=== PATIENT | female | born 1995 | race African-American/Black ===

== ENCOUNTER 2020-06-14 12:19 | Emergency (ER) | payer BC, OTHER ==
[~2020-06-14] VITALS: Ht 172.7 cm; Wt 85.5 kg
[~2020-06-14 12:19] MED LIST: CIPR500T94 PO; ONDA8TAB12 PO; TRAM50TA PO
[2020-06-14] MEDS ORDERED: HYDROcodone/APAP 5/325MG 1 TAB TABLET PO ONE (13:00)
[2020-06-14 13:54] VITALS: BP 118/76
[2020-06-14] MEDS ORDERED: LIDOCAINE 2%/EPI 1:100,000 20 ML VIAL. IJ ONE (14:00)
--- NOTE | 2020-06-14 14:41 | PHYS DOC ---
Past History Past Medical History: No Pertinent History Past Surgical History: Appendectomy Alcohol Use: Occasionally Drug Use: None Adult General Chief Complaint Chief Complaint: SKIN RASH/ABSCESS HPI HPI Patient is a 25-year-old female who presents emergency department complaining of a right vaginal Bartholin gland cyst for the past week. Patient states this is the fourth time she has had a Bartholin gland cyst on right side in the past few years. Patient reports her last Word catheter placement was 1-1/2 years ago. Patient states she has been getting these since before she had children and it is unlikely the reoccurrence is from vaginal trauma from . Patient states she has been checked for STIs in the past and does not have any sexually transmitted diseases, patient denies any STI concerns today. Patient reports her last menstrual cycle ended this past Thursday with normal duration of flow. Patient reports a 10/10 pain at the vaginal area stating that it seems to be about the size of a golf ball. Patient denies any vaginal discharge lesions or rashes in the vaginal area. Patient states she is allergic to Augmentin, takes no prescription medications at home. Patient reports a past surgical history of an appendectomy in 2016. Patient reports she had her last baby in October 05, 2019. Patient states she was at Dr. Thornton's office today and seen his nurse practitioner who diagnosed her with a sinus infection. Started her on cefdinir, Mucinex, and an allergy medication prescriptions which she is not filled yet today. Patient states Dr. Thornton's nurse practitioner sent her straight to the emergency department for evaluation of her Bartholin cyst. Patient denies any other physical complaints or physical concerns. Review of Systems Review of Systems 14 body systems of review of systems have been reviewed. See HPI for pertinent positives and negative responses, otherwise all other systems are negative, nonpertinent or noncontributory. Current Medications Current Medications Current Medications Medications (Trade) Dose Ordered Sig/Mylene Start Time Stop Time Status Last Admin Dose Admin Acetaminophen/ Hydrocodone Bitart (Lortab 5/325) 2 tab 1X ONCE 06/14/20 13:00 06/14/20 13:01 DC 06/14/20 13:25 2 TAB Lidocaine/ Epinephrine (Xylocaine 2%-Epi 1:100,000) 20 ml 1X ONCE 06/14/20 14:00 06/14/20 14:01 UNV Allergies Allergies Allergies Coded Allergies Type Severity Reaction Last Updated Verified amoxicillin Allergy Unknown 06/14/20 Yes clavulanic acid Allergy Unknown 06/14/20 Yes Physical Exam Physical Exam Constitutional: Well developed, well nourished, no acute distress, non-toxic appearance. HENT: Normocephalic, atraumatic, bilateral external ears normal, oropharynx [address], no oral exudates, nose normal. Eyes: PERRLA, EOMI, conjunctiva normal, no discharge. Neck: Normal range of motion, no tenderness, supple, no stridor. Cardiovascular:Heart rate regular rhythm, no murmur Lungs & Thorax: Bilateral breath sounds clear to auscultation Abdomen: Bowel sounds normal, soft, no tenderness, no masses, no pulsatile masses. Skin: Warm, dry, no erythema, no rash. Back: No tenderness, no CVA tenderness. Extremities: No tenderness, no cyanosis, no clubbing, ROM intact, no edema. Neurologic: Alert and oriented X 3, normal motor function, normal sensory function, no focal deficits noted. Psychologic: Affect normal, judgement normal, mood normal. : External vaginal exam performed with female RN assistance. No lesions or rashes or discharge appreciated during external exam. A speculum exam was not performed, a bimanual exam was not performed. A 3 cm in diameter abscess at the 8 o'clock position of the vaginal opening appreciated, no central punctum, no drainage appreciated. No erythema around the abscess appreciated, the abscess was fluctuant in nature. Pain was elicited with palpation of the abscess. Current Patient Data Vital Signs Vital Signs Date Time Temp Pulse Resp B/P (MAP) Pulse Ox O2 Delivery O2 Flow Rate FiO2 06/14/20 13:54 98.0 77 16 118/76 (90) 99 Room Air EKG EKG [] Radiology/Procedures Radiology/Procedures [] Heart Score C/O Chest Pain: No Risk Factors: Risk Factors: DM, Current or recent (<one month) smoker, HTN, HLP, family history of CAD, obesity. Risk Scores: Risk Factors: DM, Current or recent (<one month) smoker, HTN, HLP, family histo ry of CAD, obesity. Course & Med Decision Making Course & Med Decision Making Pertinent Labs and Imaging studies reviewed. (See chart for details) 25-year-old female, vital signs reviewed, presents emergency department con cerning of Bartholin gland cyst for the past week. Please see I&D note. Discussed with patient Word catheter placement, Word catheter care, must follow- up with primary care or [employer] specialist in 4 to 6 weeks for Word catheter removal. Patient is on cefdinir ordered by her primary care provider for sinus infection which she started today, will not order any additional antibiotics, low likelihood of infectious process as expressed material was translucent and mucoid in nature, nonmalodorous, no purulent material appreciated. Discussed with patient need to follow-up with [facility] specialist for reoccurring Bartholin cyst. Discussed with patient need to continue her medication regimen as ordered today by her primary care doctor. Patient gave verbal understanding of discharge home instructions, work catheter care, need to see primary care or [facility] specialist for reevaluation and removal within 4 to 6 weeks, patient gave verbal understanding of return to ER precautions or concerns, will continue taking her medication regimen as ordered by her primary care doctor, patient had no further questions or concerns, noted 100% pain relief now stating her pain is a 0/10 on a 1-10 pain scale, patient states she is ready to go home. Patient was discharged home without incident. Dragon Disclaimer Dragon Disclaimer This electronic medical record was generated, in whole or in part, using a voice recognition dictation system. Incision and Drainage Indication: [INDICATION:] Bartholin gland cyst. Procedure: The patient was positioned appropriately and the skin over the incision site was prepped with Betadine swabs. Local anesthesia was achieved with 4 cc 2% lidocaine with epinephrine. An incision was then made over the center of the Bartholin gland and 30 cc of translucent mucoid material was expressed. Loculations were were not appreciated or found during cyst cavity exploration. The drainage cavity was then rinsed with 240 cc of pressurized normal saline. A Word catheter was placed in the incision site, 2.5 cc saline filled the retention balloon of the Word catheter. Patient tolerated the procedure well. There were no complications. Departure Departure: Impression: Primary Impression: Bartholin gland cyst Disposition: HOME / SELF CARE / HOMELESS Condition: GOOD Referrals: СВЕТЛАНА RIVERA MD (PCP) Patient Instructions: Bartholin's Cyst or Abscess Additional Instructions: You were seen today in the emergency department for a Bartholin gland cyst. A Word catheter was placed. It is recommended the Word catheter stay in place for 4 to 6 weeks. Please follow-up with [facility] specialist, I have recommended Dr. Qureshi for [facility] [employer] specialty. I have also spoke with Dr. Thornton's nurse practitioner Kirstin Arredondo who is aware of your work catheter placement. Please follow-up with either Dr. Thornton's office or an ME[employer] specialty office for reexamination of the Word catheter, please let them know I placed 2.5 cc normal saline in the catheter balloon. If the catheter falls out on its own prior to your appointment, this is okay, please keep your future appointments for reexamination of your reoccurring Bartholin gland cyst. Please return to the emergency department for worsening symptoms or other concerns. Your primary care physician has placed you on antibiotics cefdinir for a respiratory infection, this antibiotic will also cover any infectious process from your Bartholin gland cyst. Please continue your medication regimen as prescribed by Dr. Reyes's office. I have attached information to this document regarding Bartholin gland cyst, please review. You may use [id number] Tylenol or Motrin for ongoing discomfort. Dr. Odilon Qureshi [facility] [facility] [address] [place] [address], phone number [phone] EMERGENCY DEPARTMENT GENERAL DISCHARGE INSTRUCTIONS Thank you for coming to [facility] (ED) today and trusting us with you care. We trust that you had a positivie experience in our Emergency Department. If you wish to speak to the department management, you may call the director at [phone]. YOUR FOLLOW UP INSTRUCTIONS ARE FOLLOWS: 1. Do you have a private Doctor? If you do not have a private doctor, please ask for a resource list of physicians or clinics that may be able to assist you with foll ow up care. 2. The Emergency Physician has interpreted your x-rays. The X-Ray specialist will also review them. If there is a change in the findings, you will be notified in 48 hours when at all possible. 3. A lab test or culture has been done, your results will be reviewed and you will be notified if you need a change in treatment. ADDITIONAL INSTRUCTIONS AND INFORMATION: 1. Your care today has been supervised by a physician who is specially trained in emergency care. Many problems require more than one evaluation for a complete diagnosis and treatment. We recommend that you schedule your follow up appointment as re commended to ensure complete treatment of you illness or injury. If you are unable to obtain follow up care and continue to have a problem, or if your condition worsens, we recommend that you return to the ED. 2. We are not able to safely determine your condition over the phone nor are we able to give sound medical advice over the phone. For these safety reasons, if you call for medical advice we will ask you to come to the ED for further evaluation. 3. If you have any questions regarding these discharge instructions please call the ED at [phone]. SAFETY INFORMATION: In the interest of safety, wellness, and injury prevention; we encourage you to wear your sealbelt, if you smoke; quite smoking, and we encourage family to use a protective helmet for bicycling and other sporting events that present an increased risk for head injury. IF YOUR SYMPTOMS WORSEN OR NEW SYMPTOMS DEVELOP, OR YOU HAVE CONCERNS ABOUT YOUR CONDITION; OR IF YOUR CONDITION WORSENS WHILE YOU ARE WAITING FOR YOUR FOLLOW UP APPOINTMENT; EITHER CONTACT YOUR PRIMARY CARE DOCTOR, THE PHYSICIAN WHOSE NAME AND NUMBER YOU WERE GIVEN, OR RETURN TO THE ED IMMEDIATELY. EVANGELINA HUERTA DOLLY DRIVER Jun 14, 2020 14:40
== END 2020-06-14 14:45 | disposition home or self-care (01) ==
LOC: ER 12:19
DX: N75.0 Cyst of Bartholin's gland (principal); Z90.89 Acquired absence of other organs; Z88.1 Allergy status to other antibiotic agents
CPT/HCPCS: 56420; 87070; 99284